=== PATIENT | male | born 1955 | race Caucasian/White ===

== ENCOUNTER → 2016-11-28 | Outpatient (CLI) | payer OTHER ==
[~2016-11-28] MED LIST: GADOBUTROL 10 ML VIAL IVP ONE
== END ==
LOC: FIMAGING 10:03
PROVIDERS: ATTEND Internal Medicine Gastroenterology
DX: K75.9 Inflammatory liver disease, unspecified (principal); K74.60 Unspecified cirrhosis of liver; I81 Portal vein thrombosis; K80.20 Calculus of gallbladder without cholecystitis without obstruction
CPT/HCPCS: A9585

== ENCOUNTER → 2017-01-08 | Outpatient (CLI) | payer OTHER | LOC: CIMAGING 14:34 | PROVIDERS: ATTEND Internal Medicine | DX: R06.02 Shortness of breath (principal) | CPT/HCPCS: 71020-PO ==